=== PATIENT | female | born 1965 | race Caucasian/White ===

== ENCOUNTER 2020-10-24 12:45 | Outpatient (RCR) | payer OTHER | END 2021-01-22 | disposition home or self-care (01) | LOC: WSOH | DX: G56.03 Carpal tunnel syndrome, bilateral upper limbs (principal); E11.40 Type 2 diabetes mellitus with diabetic neuropathy, unspecified; Z98.890 Other specified postprocedural states; Y99.0 Civilian activity done for income or pay ==